=== PATIENT | female | born 1995 | race Caucasian/White ===

== ENCOUNTER → 2017-03-23 | Outpatient (CLI) | payer BC ==
--- NOTE | 2017-03-23 15:17 | RADIOLOGY REPORT (SQ) ---
EXAM DESCRIPTION: CHEST PA/LATERAL COMPLETED DATE/TIME: 03/23/2017 1:00 pm REASON FOR STUDY: Other chest pain COMPARISON: None. EXAM PARAMETERS: NUMBER OF VIEWS: two views TECHNIQUE: Digital Frontal and Lateral radiographic views of the chest acquired. RADIATION DOSE: NA LIMITATIONS: none FINDINGS: LUNGS AND PLEURA: No opacities, masses or pneumothorax. No pleural effusion. MEDIASTINUM AND HILAR STRUCTURES: No masses or contour abnormalities. HEART AND VASCULAR STRUCTURES: Heart normal size. No evidence for failure. BONES: No acute findings. HARDWARE: None in the chest. OTHER: No other significant finding. IMPRESSION: NO SIGNIFICANT RADIOGRAPHIC FINDING IN THE CHEST. TECHNICAL DOCUMENTATION: JOB ID: [id number] [employer]- All Rights Reserved
--- NOTE | 2017-03-23 20:08 | EKG REPORT ---
SEVERITY:- NORMAL ECG - SINUS RHYTHM : Confirmed by: Lillian Hernandez 23-Mar-2017 20:08:18
== END ==
LOC: OD 11:47
PROVIDERS: ATTEND Nurse Practitioner
DX: R07.89 Other chest pain (principal)
CPT/HCPCS: 71020; 93005; 93010

== ENCOUNTER 2018-04-13 07:20 | Inpatient (IN) | payer BC ==
[2018-04-12 11:02] LABS: ABSOLUTE EOSINOPHILS # (AUTO) 0.1 10^3/uL (0.0-0.6); ABSOLUTE LYMPHOCYTES (AUTO) 1.9 10^3/uL (0.5-4.7); ABSOLUTE MONOCYTES (AUTO) 0.9 10^3/uL (0.1-1.4); ABSOLUTE NEUT (AUTO) 10.7 10^3/uL (1.7-8.2); BASOPHILS % (AUTO) 0.2 % (0-2); EOSINOPHILS % (AUTO) 0.4 % (0-6); HEMATOCRIT 34.8 % (36.0-47.0); HEMOGLOBIN 11.8 g/dL (12.0-15.5); LYMPHOCYTES % (AUTO) 13.7 % (13-45); MEAN CORPUSCULAR HEMOGLOBIN 30.3 pg (27.0-33.4); MEAN CORPUSCULAR HGB CONC 33.9 g/dL (32.0-36.0); MEAN CORPUSCULAR VOLUME 89 fl (80-97); MONOCYTES % (AUTO) 6.9 % (3-13); PLATELET COUNT 213 10^3/uL (150-450); RED CELL DISTRIBUTION WIDTH 14.4 % (11.5-14.0); SEGMENTED NEUTROPHILS % (AUTO) 78.8 % (42-78); TOTAL CELLS COUNTED % (AUTO) 100 %; WHITE BLOOD COUNT 13.5 10^3/uL (4.0-10.5)
[2018-04-12 11:07] LABS: APPEARANCE,URINE CLEAR; BILIRUBIN,URINE NEGATIVE (NEGATIVE); COLOR,URINE STRAW; GLUCOSE, URINE NEGATIVE (NEGATIVE); KETONES,URINE NEGATIVE (NEGATIVE); LEUKOCYTE ESTERASE,URINE NEGATIVE (NEGATIVE); NITRITE,URINE NEGATIVE (NEGATIVE); PROTEIN,URINE NEGATIVE (NEGATIVE); URINE SPECIFIC GRAVITY 1.005; UROBILINOGEN,URINE NEGATIVE mg/dL (<2.0)
[2018-04-12 11:19] LABS: URINE AMPHETAMINES SCREEN NEGATIVE; URINE BARBITURATES SCREEN NEGATIVE; URINE BENZODIAZEPINES SCREEN NEGATIVE; URINE COCAINE SCREEN NEGATIVE; URINE MARIJUANA (THC) SCREEN NEGATIVE; URINE METHADONE SCREEN NEGATIVE; URINE PHENCYCLIDINE SCREEN NEGATIVE
[2018-04-12 13:48] LABS: CHLAM PCR NOT DETECTED (NOT DETECT); GON PCR NOT DETECTED (NOT DETECT)
[~2018-04-13 07:20] MED LIST: CLINDAMYCIN 900 MG/D5W RTU 900 MG/50 ML RTUPB IV PRN; LACTATED RINGERS 1000 ML IV PRN; LIDOCAINE 0.5% INJ-PF (5 MG/ML) 50 ML SDV SUBCUT PRN
[2018-04-13] MEDS ORDERED: OXYTOCIN 10 UNIT/ML VIAL ONE (09:45)
[2018-04-13] MEDS ORDERED: FENTANYL CITRATE INJ/PF 100 MCG/2 ML AMPUL ONE (09:45)
[2018-04-13] MEDS ORDERED: BUPIVACAINE HCL/DEX-WATER/PF 15 MG/2 ML AMPULE ONE (10:22)
[2018-04-13] MEDS ORDERED: PROMETHAZINE HCL INJ 25 MG/1 ML VIAL IV PRN ×2 (10:54→11:33)
[2018-04-13] MEDS ORDERED: ONDANSETRON HCL INJ/PF 4 MG/2 ML SDV IV PRN (10:54)
[2018-04-13] MEDS ORDERED: MEPERIDINE HCL/PF INJ 25 MG/1 ML DISP.SYRIN IV PRN (10:54)
[2018-04-13] MEDS ORDERED: DIPHENHYDRAMINE HCL 50 MG/ML VIAL IV PRN (10:54)
[2018-04-13] MEDS ORDERED: MORPHINE SULFATE 10 MG/ML INJ IV PRN (10:54)
[2018-04-13] MEDS ORDERED: FENTANYL CITRATE INJ/PF 100 MCG/2 ML AMPUL IV PRN ×3 (10:54)
[2018-04-13] MEDS ORDERED: HYDROMORPHONE HCL INJ/PF 2 MG/ML AMPULE IV PRN (11:33)
[2018-04-13] MEDS ORDERED: MEASLES,MUMPS&RUBELLA VACC/PF 0.5 ML VIAL SUBCUT PRN (11:33)
[2018-04-13] MEDS ORDERED: DIPH/PERTUSS(ACELL)/TETANUS VAC/PF 0.5 ML SYR (>=10YO) IM PRN (11:33)
[2018-04-13] MEDS ORDERED: ACETAMINOPHEN 325 MG TABLET PO PRN (11:33)
[2018-04-13] MEDS ORDERED: ACETAMINOPHEN 1,000 MG/100 ML RTUPB IV PRN (11:33)
[2018-04-13] MEDS ORDERED: SIMETHICONE 80 MG TAB.CHEW PO PRN (11:33)
[2018-04-13] MEDS ORDERED: OXYTOCIN/NORMAL SALINE 20 UNIT/1,000 ML RTUINJ IV PRN (11:33)
[2018-04-13] MEDS ORDERED: OXYCODONE-ACETAMINOPHEN 5-325 MG TABLET PO PRN (11:33)
[2018-04-13] MEDS ORDERED: RINGERS SOLUTION,LACTATED 1,000 ML IV PRN (11:33)
[2018-04-13] MEDS: FENTANYL CITRATE INJ/PF 100 MCG/2 ML AMPUL ONE ×2 (11:43→11:48)
--- NOTE | 2018-04-13 11:50 | PDOC DELIVERY SUMMARY ---
Delivery Summary - Maternal Hx : II Hx Para: I Hx # Term Pregnancies: 1 Hx # Pregnancies: 0 Hx Total # of Abortions (Sponateous & Elective): 0 Number of Living Children: 1 MICHELET: 04/16/18 Gestational Age: 39.4 Risk Factors: Other - History of fourth degree laceration. Ruptured Membranes: AROM Time of Rupture: 10:42 Fluids: Clear - Delivery Presentation: Breech Heart Rate Monitoring: Done Pre-Operatively Uterine Contraction Monitoring: External Support Person Present: Yes Location: OR : Scheduled, Primary Placenta: Within Normal Limits Placenta Description: normal Number of Vessels (Cord): 3 Nuchal Cord: Yes Delivery of Placenta Date: 04/13/18 Delivery of Placenta Time: 10:44 - Medications Type of Anesthesia:: Spinal - Assess and Care Male Delivery of Date: 04/13/18 Delivery of Time: 10:43 at 1 minute: 8 at 5 minutes: 9 Preprinted Number On Band: [id number] Infant Skin to Skin: No To Nursery At: 10:48 Mode of Transport: Bassinet Delivery Weight: 4,010 Infant Delivery Length: 21.25 in - Delivery Personnel Pumper Helper: BRENDA BRYANT RN: FELI ENGLAND Nursealexis RN: SCOTTIE MCNEIL MD: JUAREZ MOON
--- NOTE | 2018-04-13 11:54 | Operative Report ---
Operative Report DATE OF SURGERY: 04/13/18 PREOPERATIVE DIAGNOSIS: History of 4th degree perineal laceration, Breech presentation, , 39+4ega POSTOPERATIVE DIAGNOSIS: ARDEN - delivered OPERATION: Primary Section SURGEON: JUAREZ MOON ANESTHESIA: Spinal TISSUE REMOVED OR ALTERED: placenta and cord not sent to pathology COMPLICATIONS: None ESTIMATED BLOOD LOSS: 1020ml QBL INTRAOPERATIVE FINDINGS: VMI delivered at 1043, Juan Antonio breech presentation, weight 4010g, 8#13oz, APgars 8/9. IVF 1000ml, UOP 300ml, normal uterus, normal tubes/ovaries bilaterally. PROCEDURE: Anesthesia provider: [Sepideh Abrams CRNA, Dr. Rees] Urine output: [300ml] IV fluids: [1000ml] Indications: [23yo at 39+4ega presents for Primary section due to a history of 4th degree laceration requiring pelvic floor PT after first delivery and baby 8#10oz. THis the baby is also breech. She desires a primary section due to history of 4th degree laceration and would desire this even if the baby is cephalic. The risks, benefits, alternatives were reviewed and she desires to proceed with planned procedure.] Procedure: The patient was taken to the operating room where spinal anesthesia was obtained and found to be adequate. She was then prepped and draped in the normal sterile fashion and placed in the dorsal supine position with a leftward tilt. A Pfannenstiel skin incision was then made and carried through to the underlying layers of the fascia with the scalpel. The fascia was incised in the midline and the incision extended laterally with the Melo scissors. The superior aspect of the fascial incision was then grasped with Donnell clamps elevated and the underlying rectus muscles dissected off [bluntly]. Attention was then turned to the inferior aspect of the fascial incision which in a similar fashion was grasped, tented up with Fanny clamps, and the rectus muscles dissected off [bluntly]. The rectus muscles were then in the midline and the peritoneum at the amount identified and entered [bluntly]. The peritoneal incision was then extended superiorly and inferiorly with good visualization of the bladder. The bladder blade was inserted and the vesicouterine peritoneum identified grasped with Vincentian pickups and entered sharply with the Metzenbaum scissors. This incision was then extended laterally with the Metzenbaum scissors and a bladder flap created digitally. The bladder blade was then reinserted and the lower uterine segment incised in a transverse fashion with the scalpel. The uterine incision was then extended bluntly. The bladder blade was removed and the infant's was delivered from juan antonio breech presentation atraumatically. The nose and mouth were suctioned and the cord doubly clamped and cut and the was handed off to waiting pediatricians. The placenta was then delivered spontaneously and the uterus exteriorized and cleared of all clots and debris. The uterine incision was then repaired with 1- 0 Vicryl in a running locked fashion. A second layer of the same suture was used to obtain hemostasis via imbrication of the initial layer. The bladder flap was then repaired with 3-0 chromic in a running fashion. The uterus was returned to the patient's abdomen and Interceed was placed overlying the uterine incision to prevent adhesions. The gutters were cleared of all clots and debris. All operative sites were noted to be hemostatic. The fascia was reapproximated with 0 Vicryl in a running fashion from each lateral edge to the midline. The skin was closed with 3-0 Monocryl in a running subcuticular fashion with overlying Dermabond for additional dressing as well as wound closure. The patient tolerated the procedure well. Sponge lap needle and instrument counts are correct times 2. 900mg of Clindamycin were given prior to skin incision. The patient was taken to the recovery area awake and in stable condition.
--- NOTE | 2018-04-13 11:54 | Brief Operative Note ---
BRIEF OPERATIVE REPORT DATE OF SURGERY: 04/13/18 TIME OF SURGERY: 10:30 PREOPERATIVE DIAGNOSIS: History of 4th degree perineal laceration, Breech presentation, , 39+4ega POSTOPERATIVE DIAGNOSIS: ARDEN - delivered SURGEON: JUAREZ MOON FINDINGS: VMI delivered at 1043, Juan Antonio breech presentation, weight 4010g, 8#13oz , APgars 8/9. IVF 1000ml, UOP 300ml, normal uterus, normal tubes/ovaries bilaterally. COMPLICATIONS: None ESTIMATED BLOOD LOSS: 1020ml QBL TISSUE REMOVED OR ALTERED: placenta and cord not sent to pathology TECHNICAL PROCEDURE: Primary Section
[2018-04-13] MEDS ORDERED: OXYTOCIN/NORMAL SALINE 20 UNIT/1,000 ML RTUINJ ONE (11:55)
[2018-04-13] MEDS ORDERED: ACETAMINOPHEN 1,000 MG/100 ML RTUPB IV ONE (12:14)
[2018-04-13] MEDS ORDERED: KETOROLAC TROMETHAMINE INJ/PF 30 MG/1 ML SDV ONE (12:40)
[2018-04-13] MEDS: KETOROLAC TROMETHAMINE INJ/PF 30 MG/1 ML SDV IV SCH ×2 (14:03→21:23)
[2018-04-13] MEDS: DOCUSATE SODIUM 100 MG CAPSULE PO SCH (18:03)
[2018-04-13] MEDS: OXYCODONE-ACETAMINOPHEN 5-325 MG TABLET PO PRN ×2 (19:12→23:42)
[2018-04-14] MEDS: OXYCODONE-ACETAMINOPHEN 5-325 MG TABLET PO PRN ×4 (04:18→23:15)
[2018-04-14] MEDS: KETOROLAC TROMETHAMINE INJ/PF 30 MG/1 ML SDV IV SCH (05:24)
[2018-04-14 06:49] LABS: HEMATOCRIT 30.6 % (36.0-47.0); HEMOGLOBIN 10.5 g/dL (12.0-15.5); MEAN CORPUSCULAR HEMOGLOBIN 30.8 pg (27.0-33.4); MEAN CORPUSCULAR HGB CONC 34.3 g/dL (32.0-36.0); MEAN CORPUSCULAR VOLUME 90 fl (80-97); PLATELET COUNT 196 10^3/uL (150-450); RED BLOOD COUNT 3.41 10^6/uL (3.72-5.28); RED CELL DISTRIBUTION WIDTH 14.7 % (11.5-14.0); WHITE BLOOD COUNT 14.7 10^3/uL (4.0-10.5)
--- NOTE | 2018-04-14 10:02 | PDOC PROGRESS REPORT ---
Subjective-OB Progress Note for:: 04/14/18 Subjective: Doing ok, pain under control, sitting up in bed, eating well,, encoraged to take pain med Physical Exam (OB) Vital Signs: Temp Pulse Resp BP Pulse Ox 98.4 F 86 16 110/62 99 04/14/18 07:45 04/14/18 07:45 04/14/18 07:45 04/14/18 07:45 04/14/18 07:45 Intake & Output 04/13/18 04/14/18 04/15/18 06:59 06:59 06:59 Intake Total 3195 Output Total 4925 Balance -1730 Weight 61.23 kg 59.2 kg - Dressing Removed: No - open to air Incision: Well Approximated Closure Type: Surgical Glue - Lochia Lochia Amount: Small 10-25 ml Lochia Color: Rubra/Red - Abdomen Description: Tender, Soft, Round Hernia Present: No Fundal Description: Firm, Midline Fundal Height: u/u - u/2 Objective-Diagnostic Laboratory: 04/14/18 06:18 04/14/18 06:18 WBC 14.7 H RBC 3.41 L Hgb 10.5 L Hct 30.6 L MCV 90 MCH 30.8 MCHC 34.3 RDW 14.7 H Plt Count 196 Assessment and Plan(PN) - Assessment and Plan (1) History of fourth degree perineal laceration Is this a current diagnosis for this admission?: Yes (2) Breech presentation delivered Is this a current diagnosis for this admission?: Yes (3) Status post primary low transverse section Is this a current diagnosis for this admission?: Yes - Time Spent with Patient Time with patient: Less than 15 minutes - Disposition Anticipated Discharge: Home Within: within 48 hours
[2018-04-14] MEDS: PRENATAL VITAMIN W DHA CAPSULE PO SCH (10:16)
[2018-04-14] MEDS: DOCUSATE SODIUM 100 MG CAPSULE PO SCH ×2 (10:16→18:40)
[2018-04-14] MEDS: IBUPROFEN 800 MG TABLET PO SCH ×3 (12:51→23:15)
[2018-04-15] MEDS: IBUPROFEN 800 MG TABLET PO SCH ×2 (05:55→13:28)
--- NOTE | 2018-04-15 09:39 | PDOC DISCHARGE SUMMARY ---
Final Diagnosis Discharge Date: 04/15/18 - Final Diagnosis (1) Breech presentation delivered Is this a current diagnosis for this admission?: Yes (2) History of fourth degree perineal laceration Is this a current diagnosis for this admission?: Yes (3) Status post primary low transverse section Is this a current diagnosis for this admission?: Yes Discharge Data - Discharge Medication Home Medications: Acetaminophen [Tylenol] 500 mg PO QHS 04/12/18 Diphenhydramine HCl [Benadryl] 25 mg PO QHS 04/12/18 Reason(s) for Admission: Ceasarean Section-Primary, Obstetric Complications Procedures: None Intrapartum Procedure(s): : Low Cervical, Transverse - Diagnosis Test Laboratory: Temp Pulse Resp BP Pulse Ox 98.5 F 98 18 116/67 98 04/15/18 03:28 04/15/18 03:28 04/15/18 03:28 04/15/18 03:28 04/15/18 03:28 04/12/18 04/12/18 04/14/18 09:43 10:02 06:18 RBC 3.90 3.41 L Hgb 11.8 L 10.5 L Hct 34.8 L 30.6 L Urine Opiates Screen NEGATIVE - Discharge information/Instructions Discharge Activity: Balance Activity w/Rest, No Lifting Over 10 Pounds, No Lifting/Push/Pulling, Pelvic Rest, No tub bath Discharge Diet: Regular Disposition: HOME, SELF-CARE Follow up with: [facility] in: 5, Days
[2018-04-15] MEDS: PRENATAL VITAMIN W DHA CAPSULE PO SCH (10:04)
[2018-04-15] MEDS: DOCUSATE SODIUM 100 MG CAPSULE PO SCH (10:04)
[2018-04-15 10:41] VITALS: BP 117/72
== END 2018-04-15 14:13 | disposition home or self-care (01) | DRG 788 ==
LOC: 2N 07:20 → EDSTATUS 10:30
PROVIDERS: ADMIT Student in an Organized Health Care Education/Training Program; ATTEND Student in an Organized Health Care Education/Training Program
PROC: 10D00Z1 Extraction of Products of Conception, Low, Open Approach (ICD-10-PCS; principal; 2018-04-13 10:15)
DX: O34.211 Maternal care for low transverse scar from previous cesarean delivery (principal); O32.1XX0 Maternal care for breech presentation, not applicable or unspecified; N85.8 Other specified noninflammatory disorders of uterus; Z3A.39 39 weeks gestation of pregnancy; Z37.0 Single live birth
CPT/HCPCS: 1961; 36415; 59025; 80307; 81001; 85025; 85027; 86850; 86900; 86901; 87491; 87591; 94799; C1765; J0131; J1170; J1885; J2550; J2590; J3010; J3490